=== PATIENT | male | born 1945 | race American Indian/Alaskan Native ===

== ENCOUNTER 2019-03-10 18:52 | Inpatient (IN) | payer OTHER ==
[~2019-03-10] VITALS: Ht 177.8 cm; Wt 113.0 kg
[~2019-03-10 18:52] MED LIST: AMIO200 PO; ATOR20 PO; CARV6.25 PO; FURO20 PO; Lisinopril2.5 MG PO; Micro-K10 MEQ PO
[2019-03-10 19:14] LABS: BASOPHILS ABSOLUTE AUTO 0.05 K/mm3 (0.00-0.23); BASOPHILS PERCENT AUTO 1 % (0-2); EOSINOPHILS ABSOLUTE AUTO 0.09 K/mm3 (0.00-0.68); EOSINOPHILS PERCENT AUTO 1 % (0-6); Hematocrit 41.9 % (37.0-53.0); Hemoglobin 13.7 g/dL (13.5-17.5); IMMATURE GRAN ABSOLUTE AUTO 0.09 K/mm3 (0.00-0.10); IMMATURE GRAN PERCENT AUTO 1 % (0-1); LYMPHOCYTES ABSOLUTE AUTO 1.16 K/mm3 (0.84-5.20); LYMPHOCYTES PERCENT AUTO 15 % (21-46); MONOCYTES ABSOLUTE AUTO 0.81 K/mm3 (0.16-1.47); MONOCYTES PERCENT AUTO 10 % (4-13); Mean Corpuscular HGB 33.6 pg (26.0-34.0); Mean Corpuscular HGB Conc 32.7 g/dL (31.5-36.5); Mean Corpuscular Volume 103 fL (80-100); Mean Platelet Volume 11.7 fL (9.1-12.4); NEUTROPHILS ABSOLUTE AUTO 5.62 K/mm3 (1.96-9.15); NEUTROPHILS PERCENT AUTO 72 % (41-73); Platelet Count 197 K/mm3 (150-400); RDW Coefficient Variation 13.9 % (11.7-14.2); Red Blood Cell Count 4.08 M/mm3 (4.30-5.90); White Blood Cell Count 7.82 K/mm3 (4.00-11.30)
[2019-03-10 19:24] LABS: International Normalized Ratio 2.88; Prothrombin Time Results 27.7 Sec (9.7-11.5)
[2019-03-10 19:35] LABS: Albumin, Blood 3.2 g/dL (3.4-5.0); Albumin/Globulin Ratio 0.9 (0.8-1.8); Bilirubin, Total 1.6 mg/dL (0.1-1.0); Bun/Creatinine Ratio 21.9 (12.0-20.0); Calcium, Blood 8.6 mg/dL (8.5-10.1); Creatinine, Blood 1.28 mg/dL (0.60-1.20); Globulin, Blood 3.6 g/dL (2.2-4.0); Potassium, Blood 3.8 mmol/L (3.5-5.5); Total Protein, Blood 6.8 g/dL (6.4-8.2); Troponin I 0.071 ng/mL (0.000-0.040)
[2019-03-10] MEDS ORDERED: NITR.4SL SL (21:31)
[2019-03-10] MEDS ORDERED: CLOP75 PO (21:31)
[2019-03-10] MEDS ORDERED: ENTRESTO 24 MG1 EACH PO (21:31)
[2019-03-10] MEDS ORDERED: WARF5 PO (21:32)
[2019-03-10] MEDS ORDERED: METO25ER PO (21:33)
[2019-03-10] MEDS ORDERED: Pacerone100 MG PO (21:33)
[2019-03-10] MEDS ORDERED: WARF2.5 PO (21:33)
[2019-03-10] MEDS ORDERED: BUME1 PO (21:34)
[2019-03-10] MEDS ORDERED: ATOR80 PO (21:34)
[2019-03-10] MEDS ORDERED: Hair, Skin & N1 EACH PO (21:35)
[2019-03-10] MEDS ORDERED: Coq-10100 MG PO (21:35)
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
[2019-03-11 03:48] LABS: BASOPHILS ABSOLUTE AUTO 0.02 K/mm3 (0.00-0.23); BASOPHILS PERCENT AUTO 0 % (0-2); EOSINOPHILS ABSOLUTE AUTO 0.02 K/mm3 (0.00-0.68); EOSINOPHILS PERCENT AUTO 0 % (0-6); Hematocrit 39.9 % (37.0-53.0); Hemoglobin 12.7 g/dL (13.5-17.5); IMMATURE GRAN ABSOLUTE AUTO 0.03 K/mm3 (0.00-0.10); IMMATURE GRAN PERCENT AUTO 0 % (0-1); LYMPHOCYTES ABSOLUTE AUTO 0.37 K/mm3 (0.84-5.20); LYMPHOCYTES PERCENT AUTO 4 % (21-46); MONOCYTES ABSOLUTE AUTO 1.02 K/mm3 (0.16-1.47); MONOCYTES PERCENT AUTO 10 % (4-13); Mean Corpuscular HGB 33.3 pg (26.0-34.0); Mean Corpuscular HGB Conc 31.8 g/dL (31.5-36.5); Mean Corpuscular Volume 105 fL (80-100); Mean Platelet Volume 11.7 fL (9.1-12.4); NEUTROPHILS ABSOLUTE AUTO 8.41 K/mm3 (1.96-9.15); NEUTROPHILS PERCENT AUTO 85 % (41-73); Platelet Count 164 K/mm3 (150-400); RDW Coefficient Variation 14.2 % (11.7-14.2); RDW Standard Deviation 55.5 fL (35.1-46.3); Red Blood Cell Count 3.81 M/mm3 (4.30-5.90); White Blood Cell Count 9.87 K/mm3 (4.00-11.30)
[2019-03-11 04:01] LABS: International Normalized Ratio 2.4
[2019-03-11 04:05] LABS: Anion Gap 5 mmol/L (6-16); Blood Urea Nitrogen 31 mg/dL (8-24); Bun/Creatinine Ratio 25.6 (12.0-20.0); CO2, Blood 28 mmol/L (21-32); Calcium, Blood 8.4 mg/dL (8.5-10.1); Chloride, Blood 107 mmol/L (98-108); Creatinine, Blood 1.21 mg/dL (0.60-1.20); Glomerular Filtration Rate >60 (60-); Glucose, Blood 130 mg/dL (70-99); Potassium, Blood 4.5 mmol/L (3.5-5.5); Sodium, Blood 140 mmol/L (136-145)
[2019-03-11 04:19] LABS: Prothrombin Time Results 23.5 Sec (9.7-11.5)
--- NOTE | 2019-03-11 04:48 | NUR ---
PT UPDATE... THE HEMATOMA OVER THE PT'S RIGHT EYE HAS INCREASED IN SIZE, PT'S EYE IS ALMOST SWOLLEN SHUT AT THIS TIME. ICE HAS BEEN APPLIED TO THE AREA. PT HAD AN INCONT BM, PT STATED THAT HE WAS NOT AWARE HE WAS INCONT, AND THIS IS NOT NORMAL FOR HIM. LARD MIXER TOLD THIS RN THAT THE STOOL WAS "VERY DARK, BLACK LOOKING" WILL CONTINUE TO MONITOR.
--- NOTE | 2019-03-11 06:11 | NUR ---
SHIFT SUMMARY. NO ACUTE CHANGES NOTED THIS SHIFT. THE PT'S VS HAVE BEEN STABLE. PT DENIES ANY CHEST PAIN/PRESSURE THAT IS NOT RELATED TO HIS RIBS, N/V OR SOB. PT HAS SHOWN SOME MOMENTS OF FORGETFULNESS/CONFUSION ABOUT MEDICATIONS AND PREVISOULY ANSWERED QUESTIONS, PT HAS NOT BEEN IMPULSIVE. CALL LIGHT IN REACH, BED IS LOCKED AND LOW WILL CONTINUE TO MONITOR UNTIL REPORT IS GIVEN TO ONCOMING RN.
--- NOTE | 2019-03-11 10:05 | NUR ---
PACER INTERROGATION ORDER CALLED NURSING THREAD ROLLER TO REQUEST PACEMAKER INTERROGATION. NURSING THREAD ROLLER CALLED BACK AND RELATED THAT PT PACEMAKER WAS INTERROGATED IN THE ER. NO REPORT NOTED IN EMR YET. PT DOES NOT REMEMBER. CONTINUE POT.
--- NOTE | 2019-03-11 11:40 | NUR ---
PACE MAKER INTERROGATION NII WILKINSON FROM [facility] HERE TO INTERROGATE PACEMAKER AT BEDSIDE. CONTINUE POT.
--- NOTE | 2019-03-11 15:22 | NUR ---
EVENING NOTE PT SITTING UP AT BEDSIDE. REFUSED RECLINER. HE HAS HIS HEAD ON THE TABLE. SGT JAUREGUI FROM [employer] [place] [employer] CALLED TO ENQUIRE ABOUT PT. TRANSFERED CALL INTO THE ROOM FOR THE PT. VSS. RIGHT EYE SWELLING IMPROVING. HE NOW HAS RACCOON BLACK EYES. NO CHANGE IN VISUAL ACUITE PER PT. MEDICATED X1 FOR CHEST/RIB PAIN. PT FEELS MUCH MORE COMFORTABLE UP INT HE CHAIR. FLUTTER VALVE GIVEN TO PT. HE HAS BEEN USING IT RELIABLE THROUGH OUT THE DAY. PACEMAKER/AICD INTERROGATED PER ORDER. CALLED Swetha OMER AND CALLED A CONSULT TO DR MIRANDA PER DR OMER REQUEST. CONTINUE POT.
--- NOTE | 2019-03-11 23:38 | NUR ---
PROVIDER CONTACTED PT WITH TWO RUNS OF V-TACH @ 3892. PT IS AOX4 AND ASYMPTOMATIC, THOUGH COMPLAINING OF "ITCHING EVERYWHERE". DR PARKER CONTACTED AND ORDERS RECEIVED FOR LORATADINE AND ADDITION OF MAGNESIUM LEVEL AND BNP TO AM LABS. WILL INPUT ORDERS AND CONTINUE MONITORING.
[2019-03-12 04:29] LABS: International Normalized Ratio 3.45; Prothrombin Time Results 32.7 Sec (9.7-11.5)
[2019-03-12 04:31] LABS: Bun/Creatinine Ratio 24.5 (12.0-20.0); Calcium, Blood 8.3 mg/dL (8.5-10.1); Creatinine, Blood 1.47 mg/dL (0.60-1.20); Magnesium, Blood 2.4 mg/dL (1.6-2.4); Potassium, Blood 4.8 mmol/L (3.5-5.5)
--- NOTE | 2019-03-12 06:13 | NUR ---
SHIFT SUMMARY- PT HAS REMAINED AOX4 THROUGHOUT SHIFT. PLEASANT AND COOPERATIVE WITH CARE. PT CONTINUES TO HAVE LOW BLOOD PRESSURES THROUGHOUT THE NIGHT- REPORTS THIS IS NORMAL FOR HIM AND "HE TAKES MEDS TO RAISE HIS BLOOD PRESSURE AT HOME", STILL AWAITING RECORDS RECEIVAL FROM [facility] TO VERIFY MED LIST, PACER INTERROGATION AND CARDIAC MEDICAL RECORDS. ALL OTHER VITAL SIGNS HAVE REMAINED STABLE. PT MEDICATED FOR PAIN ONCE THROUGHOUT SHIFT THAT DECREASED WITH ORDERED MEDICATIONS. PT WITH NO FURTHER RUNS OF V-TACH THROUGHOUT THE SHIFT AND HAS NOT REPORTED CHEST PAIN OR DYSPNEA. PT HAS RESTED IN BED AND SLEPT THROUGHOUT MUCH OF THE NIGHT. PT ALSO STATED THAT ITCHING STARTED AFTER HE GAVE HIMSELF A "BUCKET BATH" YESTERDAY AND THAT THE ITCHING IS IN ALL THE PLACES WHERE HE WASHED HIMSELF YESTERDAY. NO OTHER CHANGES FROM INITIAL ASSESSMENT. WILL CONTINUE TO MONITOR AND REPORT TO DAYSHIFT RN. BED IN LOWEST POSITION, CALL LIGHT IN REACH.
--- NOTE | 2019-03-12 10:13 | NUR ---
RECORDS REQUEST PT RECORDS FROM [facility] HAVE STARTED TO ARRIVE. RECORD REVIEW OF PT LAST ADMIT TO [facility] 02/19/19 DONE. CALLED [facility] TO REQUEST A COPY OF PT CURRENT MEDICATION LIST. HIS DISCHARGE LIST FROM THE CONSULTING RN PAR[place] IS VERY DIFFERENT FROM WHAT PT REPORTED. ATTEMPTED TO CALL [facility] TO REQUEST MED. REC WELL. LINE BUSY. CONTINUE POT.
--- NOTE | 2019-03-12 13:02 | NUR ---
03/12/2019 Patient gave student nurse Tamika Tabares permission to treat on 03/13/2019
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
[2019-03-12 16:18] LABS: Calcium, Blood 8.7 mg/dL (8.5-10.1); Creatinine, Blood 1.48 mg/dL (0.60-1.20); Magnesium, Blood 2.4 mg/dL (1.6-2.4); Potassium, Blood 4.6 mmol/L (3.5-5.5)
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
[2019-03-13 04:15] LABS: International Normalized Ratio 2.63; Prothrombin Time Results 25.5 Sec (9.7-11.5)
--- NOTE | 2019-03-13 06:04 | NUR ---
SHIFT SUMMARY- PT HAS CONTINUES TO ANSWER ORIENTATION QUESTIONS APPROPRIATELY, BUT DOES NEED FREQUENT REMINDERS OF EDUCATION THAT HAS BEEN PROVIDED ABOUT CURRENT CONDITION, CHRONIC ILLNESS DISEASE PROCESS AND MEDICATIONS HE IS TAKING. BP CONTINUES TO RUN LOW THROUGHOUT THE NIGHT, BUT MAP HAS REMAINED >65, ALL OTHER VSS. PT HAS BEEN VERY PLEASANT AND COOPERATIVE WITH CARE. CONTINUES TO AMBULATE WITH STANDBY ASSIST IN ROOM. USES URINAL AT BEDSIDE. MEDICATED ONCE FOR PAIN THAT DECREASED WITH ORDERED MEDICATIONS- PROVIDED WITH KPAD FOR HEAT THERAPY THAT HELPED DECREASE DISCOMFORT PER PT REPORT. ONE 12-BEAT RUN OF V-TACH LAST NIGHT, PT WAS ASYMPTOMATIC. NO OTHER CHANGES NOTED FROM INITIAL ASSESSMENT. WILL CONTINUE TO MONITOR AND REPORT TO ONCOMING SHIFT RN. BED IN LOW POSITION, CALL LIGHT IN REACH. BED ALARM SET FOR SAFETY.
--- NOTE | 2019-03-13 08:00 | NUR ---
PT SITTING UP IN A CHAIR, S/OX3, PLEASANT AND COOPERATIVE WITH CARE, FOLLOWS COMMANDS WELL, STATES HE HAS PAIN AT A 1/10 LONG NOT MOVING, GOES UP TO 10 IF HE MOVES, WILL MEDICATE FOR PAIN WITH MED PASS, LUNGS ARE CLEAR T/O, RESP EVEN AND UNLABORED, NO COUGH NOTED, HRR, TELE IN PLACE RUNNING SR WITH FIRST DEGREE BLOCK AND BBB, WITH PVC'S, HAS A DUAL CHAMBER PACER/AICD, HE IS VOIDING WITHOUT DIFF, SKIN HAS BRUISINGS, RACOON EYES, AND SCRAPS TO HANDS AND LEFT ARM, DRESSINGS IN PLACE, MAEW, IS A SBA TO AMBULATE, REA, CALL LIGHT IN REACH.
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
--- NOTE | 2019-03-13 13:30 | NUR ---
PT SITTING UP IN CHAIR, DOING OK. NO COMPLAINTS. CALL LIGHT IN REACH.
--- NOTE | 2019-03-13 18:36 | NUR ---
PT HAS HAD AN UNEVENTFUL DAY. NO COMPLAINTS OR CHANGES, WILL BE GOING TO [facility]OMORROW FOR [facility], CALL LIGHT IN REACH.
--- NOTE | 2019-03-13 20:55 | NUR ---
patient gave permission for care on 03/14/19
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
[2019-03-14 04:23] LABS: Hematocrit 39.9 % (37.0-53.0); Mean Corpuscular HGB 32.9 pg (26.0-34.0); Mean Corpuscular HGB Conc 32.6 g/dL (31.5-36.5); Mean Platelet Volume 10.9 fL (9.1-12.4); Platelet Count 194 K/mm3 (150-400); RDW Coefficient Variation 14.5 % (11.7-14.2); RDW Standard Deviation 54.1 fL (35.1-46.3); Red Blood Cell Count 3.95 M/mm3 (4.30-5.90); White Blood Cell Count 7.84 K/mm3 (4.00-11.30)
[2019-03-14 04:24] LABS: Mean Corpuscular Volume 101 fL (80-100)
[2019-03-14 04:37] LABS: International Normalized Ratio 1.85; Prothrombin Time Results 18.5 Sec (9.7-11.5)
[2019-03-14 04:40] LABS: Calcium, Blood 8.7 mg/dL (8.5-10.1); Creatinine, Blood 1.28 mg/dL (0.60-1.20); Magnesium, Blood 2.5 mg/dL (1.6-2.4)
--- NOTE | 2019-03-14 05:37 | NUR ---
SHIFT SUMMARY PT PLEASANT, COOPERATIVE AND USES CALL LIGHT APPROPRIATELY. PT REMAINS A&O X4. VITAL SIGNS STABLE, ALTHOUGH BLOOD PRESSURE SLIGHTLY LOW BUT MAP IN 60'S AND REMAINED CONSISTENT. PT ABLE TO AMBULATE TO BATHROOM NEEDED AND TOLERATED WELL. PT SPENT SOME TIME UP IN CHAIR DURING MY SHIFT. ASSESSMENT FINDINGS REMAIN UNCAHNGED. PT HAD A FEW CRACKERS PART OF LIGHT BREAKFAST APPROX 0445. AND REMAINED NPO SINCE. BED IN LOW POSITION, CALL LIGHT IN REACH AND PT DENIES ANY NEEDS AT THIS TIME. WILL CONTINUE TO MONITOR UNTIL HANDOFF TO DAYSHIFT RN.
--- NOTE | 2019-03-14 17:00 | NUR ---
NURSING PCU DAYSHIFT SUMMARY: Respiratory and cardiac status stable t/o the shift. Angiogram completed, no interventions required. Pt returned to room at approx 1500, R radial site, TR band and wrist board in place. TR band being recovered as per protocol, no bleed or hematoma noted. Pt resting comfortably at this time, remains drowsy from procedure, awakens w/verbal stimuli. Call light in reach, bed alarm set for safety purposes. Pt denies any questions/needs, cont to monitor until rpt is given to NOC RN.
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
--- NOTE | 2019-03-15 05:17 | NUR ---
SHIFT SUMMARY PT PLEASANT, COOPERATIVE AND USES CALL LIGHT APPROPRATELY. PT REMAINS A&O X4. ASSESSMENT FINDINGS REMAIN UNCHANGED. VITAL SIGNS STABLE, ALTHOUGHT BLOOD PRESSURE SLIGHTLY LOW. BLOOD PRESSURE THIS AM HAD M.A.P. OF 59. RECHECKED AND M.A.P. BACK UP TO 72. PT SPENT SOME TIME UP IN CHAIR DURING SHIFT. ABLE TO AMBUALTE TO BATHROOM NEEDED AND MAKE US OF URINAL. PT IN BED AT THIS TIME. BED IN LOW POSITION, CALL LIGHT IN REACH AND PT DENIES ANY NEEDS AT THIS TIME. WILL CONTINUE TO MONITOR UNTIL HANDOFF TO DAYSHIFT RN.
--- NOTE | 2019-03-15 09:05 | NUR ---
NURSING PCU DAYSHIFT: Assumed care of pt at approx 0700. A/O, pleasant, cooperative w/care. Mild general weakness noted, able to ambulate w/no c/o dizziness/light headedness. Respiratory and cardiac status appear stable at this time. Seen by PMD, discharge home d/o received. Rx's to be called to [facility] per pt request. Pt denies any questions/needs, call light in reach, cont to monitor until discharge is completed.
[2019-03-15] MEDS ORDERED: OXYC5 PO (09:27)
--- NOTE | 2019-03-15 10:22 | NUR ---
NURSING PCU DISCHARGE SUMMARY: No acute changes noted t/o the a.m. Seen by cardiologydaiana for discharge home though requested be ambulated d/t hypotension. Pt ambulated approx 200ft t/o the unit accompanied by PCT, tolerated well w/no dizziness/light headedness. Pt verbalized understanding of all written and verbal discharge instructions. Educated pt on BP monitoring and to hold cardiac meds for SBP <90 as per wader boot top assembler. Pt denies any questions/needs at this time. PIV remains in place and will be removed at time of discharge. Awaiting family for transportation, cont to monitor until discharge is completed.
== END 2019-03-15 17:10 | disposition home or self-care (01) | DRG 286 ==
LOC: ER 18:52 → PCU 18:53
PROVIDERS: Emergency Medicine; Internal Medicine; Internal Medicine Interventional Cardiology; Pharmacist; ADMIT Hospitalist
PROC: B2111ZZ Fluoroscopy of Multiple Coronary Arteries using Low Osmolar Contrast (ICD-10-PCS; principal; 2019-03-14)
DX: I47.2 Ventricular tachycardia (principal); J96.01 Acute respiratory failure with hypoxia; I13.0 Hypertensive heart and chronic kidney disease with heart failure and stage 1 through stage 4 chronic kidney disease, or unspecified chronic kidney disease; I25.10 Atherosclerotic heart disease of native coronary artery without angina pectoris; R04.0 Epistaxis; S05.11XA Contusion of eyeball and orbital tissues, right eye, initial encounter; Z95.810 Presence of automatic (implantable) cardiac defibrillator; S20.219A Contusion of unspecified front wall of thorax, initial encounter; V89.2XXA Person injured in unspecified motor-vehicle accident, traffic, initial encounter; Y92.410 Unspecified street and highway as the place of occurrence of the external cause; Z79.01 Long term (current) use of anticoagulants; I49.49 Other premature depolarization; E66.9 Obesity, unspecified; Z68.32 Body mass index [BMI] 32.0-32.9, adult; I95.9 Hypotension, unspecified; I25.5 Ischemic cardiomyopathy; N18.3 Chronic kidney disease, stage 3 (moderate); S41.102A Unspecified open wound of left upper arm, initial encounter; S41.101A Unspecified open wound of right upper arm, initial encounter; Z95.5 Presence of coronary angioplasty implant and graft; I50.9 Heart failure, unspecified
CPT/HCPCS: 36415; 70450; 70486; 71045; 71260; 72125; 73110; 73120; 74177; 80048; 80053; 82947; 83690; 83735; 83880; 84484; 85025; 85027; 85610; 85730; 86850; 86900; 86901; 90471; 90714; 93005; 93010; 93454; 94667; 96361; 96374-59; 96375; 96375-59; 96376-59; 97110; 97161; 97166; 97530; 97535; 99152; 99153; 99285-25; A9270; C1769; C1894; G0378; J1644; J2250; J2270; J2405; J3010; J7030; Q9967